=== PATIENT | male | born 1945 | race African-American/Black ===

== ENCOUNTER → 2021-09-12 | Outpatient (CLI) | payer MEDICARE ==
[~2021-09-12] MED LIST: BENA40TA8 PO; CHOL400D PO; METF-490 PO; SIMV-13 PO
== END | disposition home or self-care (01) ==
LOC: Rad HDHVI 12:10
PROVIDERS: ATTEND Internal Medicine
DX: M17.12 Unilateral primary osteoarthritis, left knee (principal); M25.861 Other specified joint disorders, right knee; M76.40 Tibial collateral bursitis [Pellegrini-Stieda], unspecified leg; E11.9 Type 2 diabetes mellitus without complications; I10 Essential (primary) hypertension; E78.5 Hyperlipidemia, unspecified; M61.9 Calcification and ossification of muscle, unspecified; G93.89 Other specified disorders of brain; Z96.651 Presence of right artificial knee joint
CPT/HCPCS: 70450; 73030; 73562